=== PATIENT | female | born 1935 | race Caucasian/White ===

== ENCOUNTER 2020-03-31 17:51 | Inpatient (IN) | payer MEDICARE, OTHER ==
[~2020-03-31] VITALS: Ht 157.5 cm; Wt 46.7 kg
--- NOTE | 2020-03-31 18:09 | NUR ---
Medically cleared by Dr Aguilar for admission to geriatric mental health unit.
[2020-03-31] MEDS ORDERED: APIX2.5T PO (18:13)
[2020-03-31] MEDS ORDERED: LORA-259 PO (18:13)
[2020-03-31] MEDS ORDERED: METO25TA6 PO (18:13)
[2020-03-31] MEDS ORDERED: METOPROLOL TARTRATE 50 MG TABLET PO ONE (18:30)
[2020-03-31] MEDS ORDERED: APIXABAN 2.5 MG TABLET PO SCH (18:30)
[2020-03-31] MEDS ORDERED: ALPRAZOLAM 0.25 MG TABLET PO ONE (18:30)
--- NOTE | 2020-03-31 18:37 | NUR ---
Pt. admitted to MHU room 141B , under care of Dr. Butler for psych & EPIC hospitalist Dr Coronado. Nurse Adriana accepted hands off [email or web address]. Belonging List completed. Patient is eating peanut butter & jelly sandwich with juice, +good appetite. Home meds (for evening) given with meal per patient's request. chief business officer Kit @bedside. Patient is calm & cooperative at this time.
[2020-03-31] MEDS ORDERED: METOPROLOL TARTRATE 50 MG TABLET ONE (18:42)
[2020-03-31] MEDS ORDERED: ALPRAZOLAM 0.25 MG TABLET ONE (18:43)
[2020-03-31] MEDS ORDERED: MAG HYDROX/AL HYDROX/SIMETH 30 ML LIQUID UDC PO PRN (20:15)
[2020-03-31] MEDS ORDERED: ACETAMINOPHEN 325 MG TABLET PO PRN (20:15)
[2020-03-31] MEDS ORDERED: BLOOD SUGAR DIAGNOSTIC 1 EACH STRIP VI ONE (20:15)
[2020-03-31] MEDS ORDERED: MAGNESIUM HYDROXIDE 30 ML LIQUID UDC PO PRN (20:15)
[2020-03-31] MEDS ORDERED: ZOLPIDEM 5 MG TABLET PO PRN (20:15)
--- NOTE | 2020-03-31 21:00 | NUR ---
ADMISSION NOTE: AT APPROX. 1900 ADMITTED 84 YEARS OLD FEMALE TO [facility] MHU ON A 5150 HOLD FOR DTO. PER HOLD, PATIENT'S DAUGHTER CALLED 911 FINDING PATIENT IN HER APARTMENT WITH LACERATION TO HER LEFT WRIST. SHE REPORTED TO STOCK HANDLER THAT SHE IS "OLD AND WANT TO ". SHE ALSO REPORTED REGULAR BENZOS USE TO SLEEP AND SHE HAS RUN OUT CAUSING HER NOT TO SLEEP. SHE IS UNABLE TO RETURN TO COMMUNITY AT THIS TIME D/T MENTAL HEALTH DISORDERS. HOLD WILL BE UP ON 04/02/2020 AT 1605. UPON FACE TO FACE EVALUATION, PATIENT NOTED A/O X 3, ABLE TO AMBULATE WITH STEADY GAIT. UPON INTERVIEW, PATIENT STATED THAT SHE WAS HAVING SUICIDAL THOUGHTS BECAUSE SHE WAS THINKING THAT THE WORLD IS GOING "BAD". "WE ARE ALL WEARING A MASK, THE WORLD IS GOING BAD". HOWEVER, PATIENT STATED THAT CUTTING HER WRIST WAS "FOOLISH". SHE DENIED SI AND ANY PLAN TO COMMIT SI. PATIENT IS ABLE TO VERBALLY CFS. PATIENT WAS GIVEN HER ADVISEMENT WELL HER BOOKLET FOR PATIENT'S RIGHT FOR PATIENT WITH MENTAL HEALTH. PATIENT IS UNDER THE CARE OF DR DIAZ AND DR ARREOLA. MEDICATION ARE RECONCILED. DAUGHTER JULES WAS NOTIFY OF PATIENT'S ADMISSION TO MHU. WILL CONTINUE TO MONITOR Q15 MIN CHECKS.
[2020-03-31] MEDS: LORAZEPAM 0.5 MG TABLET PO PRN (22:23)
[2020-04-01] MEDS: METOPROLOL TARTRATE 25 MG TABLET PO SCH ×2 (08:13→20:33)
--- NOTE | 2020-04-01 08:28 | NUR ---
Received patient sitting calmly and quietly in her assigned bed. Patient is guarded, anxious, and withdrawn. She is superficially pleasant with staff. Patient is minimizing reason for admission and is preoccupied with being discharged. "I don't belong here. I've forgiven myself for what I've done and God has forgiven me." When patient was asked reason for self-injurious behavior she stated "It's just a really bad world we're living in." Patient currently denies SI/HI, denies AH/VH. patient is able to provide for self care and ambulate independently. Noted with self-inflicted laceration on L wrist covered with nonsterile gauze. Patient is able to tolerate food and fluids.
[2020-04-01] MEDS: APIXABAN 2.5 MG TABLET PO SCH ×2 (09:11→20:32)
[2020-04-01] MEDS: LORAZEPAM 0.5 MG TABLET PO PRN (09:41)
[2020-04-01] MEDS: ESCITALOPRAM OXALATE 10 MG TABLET PO SCH (12:23)
--- NOTE | 2020-04-01 12:37 | NUR ---
Patient given escitalopram as ordered. Provided with education about medication, provided with written educational materials. patient able to verbalize understanding of education.
[2020-04-01 13:24] VITALS: BP 150/85
[2020-04-01 16:00] VITALS: BP 131/75
--- NOTE | 2020-04-01 17:29 | NUR ---
Pt refused EKG, sts already had one.. RN aware
[2020-04-01 20:00] VITALS: BP 150/75
[2020-04-01] MEDS: TRAZODONE 50 MG TABLET PO PRN (21:34)
[2020-04-02] MEDS: LORAZEPAM 0.5 MG TABLET PO PRN ×2 (00:07→12:08)
--- NOTE | 2020-04-02 03:57 | NUR ---
Received patient last night walking around and talking to her roommate. Patient was anxious about getting sleep and was ruminating on the subject. Md ordered Trazodone for the patient, but after taking the medication, patient c/o " My ears feel hot, and I am still wide awake." Patient was becoming increasingly anxious and convinced that the only way she could get to sleep was if she had Lorazepam. After some time trying to calm patient and educate her on other ways to fall asleep, to no avail, mortgage or loan underwriter gave PRN Ativan as ordered and patient was able to sleep after that. Patient has slept for 5 hours so far and is still sleeping. Frequent rounds made to ensure patients safety. No distress of any kind noted at this time. Continuing to monitor and assess needs. Patient denies SI and minimizes the pre hospital attempt.
[2020-04-02 07:30] VITALS: BP 150/68
[2020-04-02] MEDS: ESCITALOPRAM OXALATE 10 MG TABLET PO SCH (09:10)
[2020-04-02] MEDS: METOPROLOL TARTRATE 25 MG TABLET PO SCH ×2 (09:10→20:49)
[2020-04-02] MEDS: APIXABAN 2.5 MG TABLET PO SCH ×2 (09:13→20:50)
--- NOTE | 2020-04-02 10:40 | NUR ---
Family Contact: SW called the pts daughter, Coco ([phone]), and informed her that the pt was placed on a 5250 hold and discussed the pts medication changes. SW stated that the pt needs to be stable and not a danger to herself at the time of discharge since the plan is for her to go home and that is where she made a serious attempt. Pts daughter stated that she would like to remain updated on the situation.
[2020-04-02] MEDS ORDERED: LATA2.5D7 EACHEYE (10:47)
--- NOTE | 2020-04-02 11:12 | NUR ---
Initial Discharge Plan: Pt currently resides at her home located at [address] [place] [address]; ([phone]). Per pt, she would like to return to her home. SW will work with the pt and the MD regarding appropriate discharge planning. SW will form a safe and proper discharge.
--- NOTE | 2020-04-02 12:07 | NUR ---
WOUND CARE CONSULT: PT PRESENTS WITH SCRATCH OMALLEY (DRY) AND ABRASION TO LEFT WRIST/FOREARM AREA, PRESENT ON ADMISSION. RECOMMENDATIONS MADE FOR WOUND CARE AND SKIN PROTECTION. DISCUSSED WITH NURSING STAFF. PT IS AMBULATORY AND CONTINENT. WILL SEE PRN. Addendum: 04/02/20 at 1208 by CASSY SIDDIQUI RN Amended: Links added.
--- NOTE | 2020-04-02 14:49 | NUR ---
Firearms Report: Applications Intern completed and submitted a [employer] firearms report for 5150 grave disability certification. A copy of report has been placed in patient chart.
[2020-04-02 15:19] VITALS: BP 151/71
[2020-04-02] MEDS ORDERED: LATANOPROST OPHT DROP 2.5 ML BOTTLE EACHEYE SCH (18:00)
--- NOTE | 2020-04-02 18:17 | NUR ---
patient is A/O x4, ambulating ,denies any suicidal ideation ,compliant with all am medication .left wrist dressing changed ,will continue close to monitoring.
--- NOTE | 2020-04-02 20:00 | NUR ---
RECEIVED PATIENT IN HER ROOM. SHE IS NOTED AWAKE A/O X 4. SHE IS NOTED PREOCCUPIED ABOUT GETTING ENOUGH SLEEP TONIGHT. SHE IS REQUESTING TO GET ATIVAN 1MG TO HELP HER TO SLEEP. PATIENT WAS EXPLAINED THAT DR DIAZ PRESCRIBED TRAZODONE 50M PO PRN FOR SLEEP. HOWEVER, SHE STATED, "THAT MEDICATION MADE ME HOT AND IT DIDN'T HELP ME SLEEP. I JUST WANT MY LORAZEPAM". PT WAS EDUCATED ABOUT THE USE AND SIDE EFFECTS OF LORAZEPAM VS TRAZODONE. SHE WAS ENCOURAGE ABOUT DECREASING THE USE OF LORAZEPAM. PATIENT DENIED SI/HI/VH/AH SHE IS ABLE TO VERBALLY CFS. HOWEVER, SHE MINIMIZED HER SYMPTOMS. PT REQUIRED SOME REDIRECTIONS. V/S STABLE AT THIS TIME. PT IS REASSURED FOR HER SAFETY. SAFETY AND FALL PRECAUTION IN PLACE. WILL CONTINUE TO MONITOR.
[2020-04-02] MEDS: LATANOPROST OPHT DROP 2.5 ML BOTTLE EACHEYE SCH (20:51)
[2020-04-02 21:21] VITALS: BP 152/75
[2020-04-02] MEDS: TRAZODONE 50 MG TABLET PO PRN (22:00)
--- NOTE | 2020-04-02 22:00 | NUR ---
PATIENT STATED THAT SHE WAS HAVING TROUBLE FALLING ASLEEP AND REQUESTED ATIVAN. AFTER MULTIPLE REDIRECTIONS PATIENT AGREED TO TAKE TRAZODONE 50MG PO PRN FOR INSOMNIA. WILL CONTINUE TO MONITOR.
--- NOTE | 2020-04-03 00:05 | NUR ---
PATIENT APPROACHED THE NURSING STATION AND STATED, "THAT MEDICATION IS NOT WORKING, I AM AWAKE". PT WAS ALSO NOTED ANXIOUS AND PREOCCUPIED ABOUT GETTING ENOUGH SLEEP. SHE ALSO ADDED, "I HOPE THE DOCTOR LET ME GO TOMORROW, I CANT' SLEEP IN THIS PLACE". PT WAS REASSURED AND REDIRECTED. ATIVAN 0.5MG PO PRN WAS ALSO GIVEN FOR ANXIETY. WILL CONTINUE TO MONITOR.
[2020-04-03] MEDS: LORAZEPAM 0.5 MG TABLET PO PRN ×2 (00:11→06:31)
[2020-04-03 07:30] VITALS: BP 131/69
[2020-04-03] MEDS: ESCITALOPRAM OXALATE 10 MG TABLET PO SCH (08:18)
[2020-04-03] MEDS: APIXABAN 2.5 MG TABLET PO SCH ×2 (08:19→20:20)
[2020-04-03] MEDS: METOPROLOL TARTRATE 25 MG TABLET PO SCH ×2 (08:20→20:19)
--- NOTE | 2020-04-03 13:07 | NUR ---
Family Contact: Pts daughter, Coco ([phone]), called the SW and stated that she wanted to discuss possible resources that could be used for the pt when she is discharged back to her home. SW suggested that the pts daughter apply for IHSS for the pt since she has medi-rafa per the pts daughter. It was discussed that the pt has medicare and could have home health as well but the SW explained the two options and family decided on IHSS. SW explained how to apply and the pts family stated that they would.
[2020-04-03 16:00] VITALS: BP 146/62
[2020-04-03 20:13] VITALS: BP 144/70
[2020-04-03] MEDS: LATANOPROST OPHT DROP 2.5 ML BOTTLE EACHEYE SCH (20:18)
[2020-04-03] MEDS: ZOLPIDEM 5 MG TABLET PO PRN (22:03)
--- NOTE | 2020-04-03 23:03 | NUR ---
wound on left wrist anterior aspect was cleaned with NS and dressing was changed. Scant amount of serous fluids was seeing and some redness. No S/S of infection was noted, no swelling. patient denied pain or discomfort. pictured was taken and placed in chart. will continue with treatment plan.
[2020-04-04] MEDS: LORAZEPAM 0.5 MG TABLET PO PRN ×2 (03:54→10:01)
[2020-04-04 07:30] VITALS: BP 167/75
[2020-04-04] MEDS: APIXABAN 2.5 MG TABLET PO SCH ×2 (08:40→21:08)
[2020-04-04] MEDS: ESCITALOPRAM OXALATE 10 MG TABLET PO SCH (08:40)
[2020-04-04] MEDS: METOPROLOL TARTRATE 25 MG TABLET PO SCH ×2 (08:40→21:09)
[2020-04-04 16:00] VITALS: BP 138/70
[2020-04-04] MEDS: ENSURE ENLIVE (VAN) 240 ML LIQUID PO SCH (17:00)
[2020-04-04 20:28] VITALS: BP 132/68
[2020-04-04] MEDS: LATANOPROST OPHT DROP 2.5 ML BOTTLE EACHEYE SCH (21:08)
[2020-04-04] MEDS: ZOLPIDEM 5 MG TABLET PO PRN (22:44)
[2020-04-05] MEDS: LORAZEPAM 0.5 MG TABLET PO PRN ×3 (04:11→18:55)
[2020-04-05 07:30] VITALS: BP 145/66
[2020-04-05] MEDS: METOPROLOL TARTRATE 25 MG TABLET PO SCH ×2 (08:00→22:00)
[2020-04-05] MEDS: ESCITALOPRAM OXALATE 10 MG TABLET PO SCH (08:00)
[2020-04-05] MEDS: ENSURE ENLIVE (VAN) 240 ML LIQUID PO SCH ×2 (08:00→17:00)
[2020-04-05] MEDS: APIXABAN 2.5 MG TABLET PO SCH ×2 (08:15→21:59)
--- NOTE | 2020-04-05 11:54 | NUR ---
Probable Cause Hearing: Pts 5250 hold was upheld for danger to self. Pt filed for a writ as a response.
--- NOTE | 2020-04-05 11:54 | NUR ---
Family Contact: SW called the pts daughter, Coco ([phone]), and stated that the pts hold was upheld and then explained that the pt asked for a second hearing and filed a writ. Pts daughter stated that she was at work and would call the SW at lunch time to discuss her questions.
--- NOTE | 2020-04-05 13:06 | NUR ---
Individual Intervention/Writ Request Rescinded: SW met with the pt after the MD informed her that she will be discharged sometime on the weekend. Pt informed the SW that she no longer needs a second hearing and would like to rescind the request for the writ hearing. SW stated that she would work on her request.
--- NOTE | 2020-04-05 13:59 | NUR ---
Family Contact: Pts daughter, Coco ([phone]), called the SW and the SW stated that the pt is going to be discharged back home sometime this weekend. SW stated that she is working with the [facility] to arrange the transportation. SW stated that the pt will need to have her prescriptions filled at a pharmacy to remain compliant with her medications. Pts daughter provided the SW with the pts pharmacy info.
--- NOTE | 2020-04-05 14:01 | NUR ---
Country Transport Contact: SW called [facility] ([phone]) and was informed that the coordinator would call her back.
--- NOTE | 2020-04-05 15:28 | NUR ---
Country Transport Contact: Luli Flores from [facility] ([phone]) and stated that she will check the schedule and then let the SW know.
[2020-04-05 16:00] VITALS: BP 146/71
[2020-04-05 20:00] VITALS: BP 137/63
[2020-04-05] MEDS: LATANOPROST OPHT DROP 2.5 ML BOTTLE EACHEYE SCH (22:00)
[2020-04-06] MEDS: LORAZEPAM 0.5 MG TABLET PO PRN ×3 (02:21→17:55)
[2020-04-06 07:30] VITALS: BP 146/73
[2020-04-06] MEDS: ENSURE ENLIVE (VAN) 240 ML LIQUID PO SCH ×2 (08:00→17:00)
[2020-04-06] MEDS: ESCITALOPRAM OXALATE 10 MG TABLET PO SCH (08:46)
[2020-04-06] MEDS: METOPROLOL TARTRATE 25 MG TABLET PO SCH ×2 (08:47→21:08)
[2020-04-06] MEDS: APIXABAN 2.5 MG TABLET PO SCH ×2 (08:47→21:09)
--- NOTE | 2020-04-06 10:00 | NUR ---
Family Contact: AALIYAH called the pts daughter, Coco ([phone]), and informed her that the pt will be discharged the following day and the [facility] will pick her up. AALIYAH stated that she will email her a list of psychiatrists in the [place] area and then will make an appointment with Dr. Melvin as well.
--- NOTE | 2020-04-06 10:03 | NUR ---
Country Transport Contact: SW called [facility] ([phone]) and spoke to Sofi Flores who stated that the dedicated local truck driver stated that it would be around noon but once he confirms the SW will get a call.
--- NOTE | 2020-04-06 11:27 | NUR ---
Discharge Note: Pt was discharged to her home located at [address] [facility], [address] Pt will be picked up by [facility] transportation ([phone]) around 12pm. Pts daughter, Coco Miranda ([phone]), was made aware of the discharge. Upon discharge, pt appears to be in a euthymic mood and presents with a calm affect. Pt appears to be alert and oriented x4 (time, place, self and situation). Pt denied both suicidal and homicidal ideation as well as auditory and visual hallucinations. Pt appears to be appropriately dressed and well groomed. Pt is ambulatory with an unsteady gait. Pt was provided with substance abuse referrals from the [facility]. Pt was referred to be under the care of psychiatrist, Dr. Brizuela, located at [facility], [address], [place] [address]; . Pt will also continue to be under the care of her stereoptic projection topographer, located at [address] [place] [address]; and pt has an appointment on 04/19/20 at 2pm. The multidisciplinary exit care form was done, printed, signed, and given to the patient.
[2020-04-06 16:00] VITALS: BP 140/65
[2020-04-06 20:37] VITALS: BP 151/58
[2020-04-06] MEDS: LATANOPROST OPHT DROP 2.5 ML BOTTLE EACHEYE SCH (21:00)
[2020-04-06] MEDS: ZOLPIDEM 5 MG TABLET PO PRN (21:17)
[2020-04-07] MEDS: LORAZEPAM 0.5 MG TABLET PO PRN ×2 (05:23→12:45)
--- NOTE | 2020-04-07 07:13 | NUR ---
GPS - Rn / Pt was cooperative with care and medications. Pt slept up to 5 hours with prn given twice. Pt aware of d/c home today and daughter called and aware also. Treatment on left wrist clean and dry. Denied SI and was calm during night.
[2020-04-07 07:30] VITALS: BP 139/67
[2020-04-07] MEDS: ENSURE ENLIVE (VAN) 240 ML LIQUID PO SCH (08:00)
[2020-04-07 08:42] VITALS: BP 139/67
[2020-04-07] MEDS: METOPROLOL TARTRATE 25 MG TABLET PO SCH (08:42)
[2020-04-07] MEDS: ESCITALOPRAM OXALATE 10 MG TABLET PO SCH (08:43)
[2020-04-07] MEDS: APIXABAN 2.5 MG TABLET PO SCH (08:45)
--- NOTE | 2020-04-07 15:11 | NUR ---
Discharge Notes : Patient AOx3-4, compliant with medication, patient denies SI and HI, patient was monitored [id number] and was seen by Psychiatrist and Medical doctor, [facility] , Psychotropic medications, she has been compliant with medication and shows improvement , no sign of distress, patient express understanding on the home medication instruction, patients belongings and valuables was signed and acknowledge by the patient, patient daughter margareth was informed of the DC, call in the prescription to [facility] pharmacy, patient was accompanied to the transportation to be dropped off to the discharge location
== END 2020-04-07 15:00 | disposition home or self-care (01) | DRG 881 ==
LOC: ER 17:51 → GPS 18:25
PROVIDERS: ADMIT Psychiatry & Neurology Psychiatry; ATTEND Family Medicine
DX: F32.9 Major depressive disorder, single episode, unspecified (principal); N18.9 Chronic kidney disease, unspecified; R45.851 Suicidal ideations; S51.812D Laceration without foreign body of left forearm, subsequent encounter; X78.9XXD Intentional self-harm by unspecified sharp object, subsequent encounter; I48.91 Unspecified atrial fibrillation; H35.30 Unspecified macular degeneration; H40.9 Unspecified glaucoma; Z79.01 Long term (current) use of anticoagulants; F41.9 Anxiety disorder, unspecified; I12.9 Hypertensive chronic kidney disease with stage 1 through stage 4 chronic kidney disease, or unspecified chronic kidney disease; Z79.899 Other long term (current) drug therapy
CPT/HCPCS: 36415; A4663